=== PATIENT | female | born 1935 | race Caucasian/White ===

== ENCOUNTER 2017-06-05 14:02 | Emergency (ER) | payer MEDICARE ==
[~2017-06-05] VITALS: Ht 167.6 cm; Wt 56.7 kg
[2017-06-05 15:07] LABS: BILIRUBIN NEGATIVE (NEGATIVE); BLOOD NEGATIVE (NEGATIVE); CLARITY CLEAR (CLEAR); COLOR YELLOW (YELLOW); GLUCOSE 2+ (NEGATIVE); KETONE NEGATIVE (NEGATIVE); LEUKO ESTERASE NEGATIVE (NEGATIVE); NITRITE NEGATIVE (NEGATIVE); SPECIFIC GRAVITY <= 1.005 (1.005-1.030); UROBILINOGEN 0.2 E.U./dl (0.2-1.0)
[2017-06-05 15:17] LABS: EPITHELIAL CELLS 0-2; RBC 0-2 rbc/hpf (0-2); WBC 0-2 wbc/hpf (0-5)
== END 2017-06-05 16:31 | disposition other institution (70) ==
LOC: ED 14:02
PROVIDERS: Physician Assistant
DX: S09.90XA Unspecified injury of head, initial encounter (principal); M25.511 Pain in right shoulder; Z88.0 Allergy status to penicillin; Z88.1 Allergy status to other antibiotic agents; Z88.5 Allergy status to narcotic agent; Z91.012 Allergy to eggs; Z91.010 Allergy to peanuts; W06.XXXA Fall from bed, initial encounter; Y93.89 Activity, other specified; Y92.89 Other specified places as the place of occurrence of the external cause; Y99.9 Unspecified external cause status

== ENCOUNTER → 2017-07-10 | Outpatient (CLI) | payer MEDICARE | LOC: CT 07-03 10:00 | DX: K80.20 Calculus of gallbladder without cholecystitis without obstruction (principal); E27.49 Other adrenocortical insufficiency; N28.89 Other specified disorders of kidney and ureter; K57.30 Diverticulosis of large intestine without perforation or abscess without bleeding; I70.8 Atherosclerosis of other arteries; R31.9 Hematuria, unspecified ==

== ENCOUNTER → 2017-10-16 | Outpatient (CLI) | payer MEDICARE | END | disposition home or self-care (01) | LOC: LAB 14:05 | DX: M31.6 Other giant cell arteritis (principal); R79.82 Elevated C-reactive protein (CRP) ==

== ENCOUNTER 2018-02-20 22:38 | Inpatient (IN) | payer MEDICARE ==
[~2018-02-20] VITALS: Ht 139.7 cm; Wt 49.9 kg
--- NOTE | ~2018-02-20 | EKG ---
[place], [place] ELECTROCARDIOGRAM REPORT NAME: JACKIE OTERO UNIT #: [id number] ROOM: 409 DOCTOR: DANIELA DRAFT REPORT BIRTHDATE: [birth year] [facility] Test Date: 2018-02-20 Test Time: 22:43:12 Pat Name: JACKIE OTERO Department: Room: Gender: F Shaker Out: : 1935 Requested By: EULA SALCEDO Order Number: [id number] Reading MD: Oral Benjamin MD Measurements Intervals [place] Rate: 87 P: 48 TN: 118 QRS: -7 QRSD: 86 T: 54 QT: 354 QTc: 426 Interpretive Statements Sinus tachycardia Atrial premature complexes Borderline short TN interval RSR' in V1 or V2, right VCD Borderline ST depression, lateral leads Abnormal EKG. Electronically Signed On 02-21-2018 16:12:39 PDT by Oral Benjamin MD CM:EKGRPT:ELECTROCARDIOGRAM REPORT [id number] EULA SUAREZ DRAFT REPORT EULA SALCEDO MD
--- NOTE | ~2018-02-20 | EKG ---
[place], [place] ELECTROCARDIOGRAM REPORT NAME: JACKIE OTERO UNIT #: [id number] ROOM: 409 DOCTOR: DANIELA DRAFT REPORT BIRTHDATE: [birth year] [facility] Test Date: 2018-02-21 Test Time: 04:28:07 Pat Name: JACKIE OTERO Department: 4E Room: [facility] Gender: F Digital Sales Executive: Luis M Mejia : 1935 Requested By: EULA SALCEDO Order Number: [id number] Reading MD: Oral Benjamin MD Measurements Intervals [place] Rate: 96 P: 71 [place]: 123 QRS: 16 QRSD: 87 T: 67 QT: 351 QTc: 444 Interpretive Statements Sinus tachycardia Atrial premature complexes RSR' in V1 or V2, right VCD No significant change prior EKG Abnormal EKG. Electronically Signed On 02-21-2018 16:18:56 PDT by Oral Benjamin MD CM:EKGRPT:ELECTROCARDIOGRAM REPORT [id number] EULA SUAREZ DRAFT REPORT EULA SALCEDO MD
--- NOTE | ~2018-02-20 | EKG ---
[place], [place] ELECTROCARDIOGRAM REPORT NAME: JACKIE OTERO UNIT #: [id number] ROOM: 409 DOCTOR: EPIPHANY DRAFT REPORT BIRTHDATE: [birth year] [facility] Test Date: 2018-02-21 Test Time: 02:06:40 Pat Name: JACKIE OTERO Department: Room: Gender: F Senior Administrative Associate: [facility] : 1935 Requested By: EULA SALCEDO Order Number: [id number] Reading MD: Oral Benjamin MD Measurements Intervals [place] Rate: 83 P: 56 SC: 117 QRS: 7 QRSD: 92 T: 58 QT: 376 QTc: 442 Interpretive Statements Sinus rhythm Atrial premature complex Borderline short SC interval RSR' in V1 or V2, right VCD or RVH Borderline ST depression, lateral leads Abnormal EKG. Electronically Signed On 02-21-2018 16:14:30 PDT by Oral Benjamin MD CM:EKGRPT:ELECTROCARDIOGRAM REPORT [id number] EULA SALCEDO MD EPIPHANY DRAFT REPORT EULA SALCEDO MD
[2018-02-20 22:38] VITALS: BP 137/74
[2018-02-20 23:35] LABS: HEMATOCRIT 41.1 % (37.0-47.0); HEMOGLOBIN 13.6 g/dl (12.0-16.0); MEAN CELL VOLUME 101.2 fl (81.0-99.0); MEAN CORPUSCULAR HGB 33.5 pg (27.0-31.0); MEAN CORPUSCULAR HGB CONC 33.1 g/dl (33.0-37.0); PLATELET COUNT AUTOMATED 279 10*3/uL (130-400); RED BLOOD COUNT 4.06 10*6/uL (4.10-5.10); RED CELL DISTRI WIDTH 14.5 % (0-14.5); WHITE BLOOD COUNT 12.7 10*3/uL (4.8-10.8)
[2018-02-20 23:45] LABS: ACT PARTIAL THROMBO TIME 18.7 SECONDS (20.8-31.5); INTERNATIONAL NORM RATIO 0.9 (2.0-3.5)
[2018-02-20 23:53] LABS: ALBUMIN 2.7 gm/dl (3.1-4.5); ALKALINE PHOSPHATASE 101 U/L (45-117); BUN 27 mg/dl (7-24); CHLORIDE 104 mmol/L (98-107); CREATININE 0.65 mg/dL (0.55-1.02); POTASSIUM 3.8 mmol/L (3.5-5.1); SGOT/AST 7 IU/L (3-35); SGPT/ALT 30 U/L (12-78); SODIUM 140 mmol/L (136-145); TOTAL PROTEIN 5.3 gm/dL (6.4-8.2)
[2018-02-20 23:54] LABS: TROPONIN I 0.015 ng/ml (<0.045)
[2018-02-20 23:57] LABS: BASOPHILS 1 % (0-1); PLATELET SUFFICIENCY NORMAL (NORMAL); POLYCHROMASIA SLIGHT; TOTAL CELLS COUNTED 100 #CELLS
[2018-02-21] VITALS (7 sets, daily range): BP systolic 113–150; BP diastolic 54–86
[2018-02-21 01:05] LABS: BILIRUBIN NEGATIVE (NEGATIVE); BLOOD NEGATIVE (NEGATIVE); CLARITY CLEAR (CLEAR); COLOR YELLOW (YELLOW); GLUCOSE 2+ (NEGATIVE); KETONE NEGATIVE (NEGATIVE); LEUKO ESTERASE NEGATIVE (NEGATIVE); NITRITE NEGATIVE (NEGATIVE); PH 6.5 (5.0-9.0); SPECIFIC GRAVITY <= 1.005 (1.005-1.030); UROBILINOGEN 0.2 E.U./dl (0.2-1.0)
[2018-02-21 01:21] LABS: RBC 0-2 rbc/hpf (0-2); WBC 0-2 wbc/hpf (0-5)
[2018-02-21] MEDS ORDERED: BIOFREEZE118 ML T (02:12)
[2018-02-21] MEDS ORDERED: PREDNISONE10 M1 PO (02:14)
[2018-02-21] MEDS ORDERED: PREDNISONE5 M1 PO (02:15)
[2018-02-21] MEDS ORDERED: AQUAPHOR396 GM T (02:16)
[2018-02-21] MEDS ORDERED: COZAAR100 MG PO (02:17)
[2018-02-21] MEDS ORDERED: CONSTULOSE10 GM/151 PO (02:18)
[2018-02-21] MEDS ORDERED: LANTUS SOL100 UNIT/1 SQ (02:19)
[2018-02-21] MEDS ORDERED: ARTIFICIAL TEA1 EACH OP (02:21)
[2018-02-21] MEDS ORDERED: CLARITIN10 MG PO (02:22)
[2018-02-21] MEDS ORDERED: BENADRYL25 M2 PO (02:22)
[2018-02-21] MEDS ORDERED: CALTRATE 600 +1 EACH PO (02:23)
[2018-02-21] MEDS ORDERED: FISH OIL 1,0001 EAC4 PO (02:23)
[2018-02-21] MEDS ORDERED: LIDODERM1 EACH T (02:24)
[2018-02-21] MEDS ORDERED: PRESERVISION A1 EAC1 PO (02:25)
[2018-02-21] MEDS ORDERED: VENELEX OINTMEN60 GM T (02:27)
[2018-02-21] MEDS ORDERED: NORCO 5-325 TA1 EACH PO (02:28)
[2018-02-21] MEDS ORDERED: AYR SALINE 50 M50 ML NAS (02:28)
[2018-02-21] MEDS ORDERED: TYLENOL325 M1 PO (02:29)
[2018-02-21] MEDS ORDERED: LASIX20 MG PO (02:30)
[2018-02-21] MEDS ORDERED: AZASAN50 MG PO (02:30)
[2018-02-21] MEDS ORDERED: KLOR-CON SPRIN10 MEQ PO (02:31)
[2018-02-21] MEDS ORDERED: ASPIRIN81 M1 PO (02:32)
[2018-02-21] MEDS ORDERED: ENALAPRIL MALEA20 MG PO (02:32)
[2018-02-21] MEDS ORDERED: OMEPRAZOLE D/R20 MG PO (02:33)
[2018-02-21] MEDS ORDERED: LEVOXYL88 MCG PO (02:33)
[2018-02-21] MEDS ORDERED: DOCUSATE SODIU100 M2 PO (02:34)
[2018-02-21] MEDS ORDERED: SEROQUEL25 MG PO (02:34)
[2018-02-21] MEDS ORDERED: HUMALOG100 UNIT/2 SQ (02:35)
[2018-02-21] MEDS ORDERED: LIPITOR20 MG PO (02:35)
[2018-02-21] MEDS ORDERED: MECLIZINE HYD12.5 MG PO (02:36)
[2018-02-21 05:18] LABS: BUN 24 mg/dl (7-24); CHLORIDE 106 mmol/L (98-107); CREATININE 0.49 mg/dL (0.55-1.02); POTASSIUM 3.7 mmol/L (3.5-5.1); SODIUM 144 mmol/L (136-145)
[2018-02-21 05:22] LABS: CHOLESTEROL 117 mg/dL (<200); FREE T4 1.06 ng/dl (0.76-1.46); HDL CHOLESTEROL 48 mg/dl (40-60); LDL CHOLESTEROL 54 mg/dL (9-159); PHOSPHOROUS 3.1 mg/dL (2.5-4.9); TRIGLYCERIDES 74 mg/dl (<150); VLDL CHOLESTEROL 15 mg/dL (6-40)
[2018-02-21 05:29] LABS: THYROID STIM HORMONE (HS) 0.117 uIU/ml (0.358-4.75)
[2018-02-21 06:06] LABS: HEMATOCRIT 38.5 % (37.0-47.0); HEMOGLOBIN 12.5 g/dl (12.0-16.0); MEAN CELL VOLUME 102.9 fl (81.0-99.0); MEAN CORPUSCULAR HGB 33.4 pg (27.0-31.0); MEAN CORPUSCULAR HGB CONC 32.5 g/dl (33.0-37.0); MEAN PLATELET VOLUME 9.2 fl (9.6-12.3); PLATELET COUNT AUTOMATED 257 10*3/uL (130-400); RED BLOOD COUNT 3.74 10*6/uL (4.10-5.10); RED CELL DISTRI WIDTH 14.3 % (0-14.5); WHITE BLOOD COUNT 11.1 10*3/uL (4.8-10.8)
[2018-02-21 07:11] LABS: PLATELET SUFFICIENCY NORMAL (NORMAL); TOTAL CELLS COUNTED 100 #CELLS
[2018-02-21 08:30] LABS: VITAMIN D, 25-HYDROXY 20.2 ng/mL (30-100)
[2018-02-22] VITALS: BP 130/87
[2018-02-22 06:28] LABS: HEMATOCRIT 38.5 % (37.0-47.0); HEMOGLOBIN 12.5 g/dl (12.0-16.0); MEAN CELL VOLUME 101.9 fl (81.0-99.0); MEAN CORPUSCULAR HGB 33.1 pg (27.0-31.0); MEAN CORPUSCULAR HGB CONC 32.5 g/dl (33.0-37.0); PLATELET COUNT AUTOMATED 250 10*3/uL (130-400); RED BLOOD COUNT 3.78 10*6/uL (4.10-5.10); RED CELL DISTRI WIDTH 14.3 % (0-14.5); WHITE BLOOD COUNT 11.6 10*3/uL (4.8-10.8)
[2018-02-22 06:47] LABS: BUN 25 mg/dl (7-24); CHLORIDE 109 mmol/L (98-107); CREATININE 0.44 mg/dL (0.55-1.02); POTASSIUM 4.1 mmol/L (3.5-5.1); SODIUM 141 mmol/L (136-145)
[2018-02-22 07:12] LABS: BURR CELLS FEW; PLATELET SUFFICIENCY NORMAL (NORMAL); TOTAL CELLS COUNTED 100 #CELLS
[2018-02-22 08:00] VITALS: BP 160/70
[2018-02-22] MEDS ORDERED: PREDNISONE10 MG PO (08:02)
[2018-02-22] MEDS ORDERED: LEVAQUIN750 M1 PO (08:02)
[2018-02-22] MEDS ORDERED: LOPRESSOR25 MG PO (09:18)
[2018-04-05] MEDS ORDERED: MACROBID100 M1 PO (12:04)
[2018-04-06] MEDS ORDERED: LOPRESSOR25 MG PO (12:01)
[2018-04-06] MEDS ORDERED: SUNMARK MUCUS600 MG PO (12:03)
[2018-04-06] MEDS ORDERED: LANTUS SOL100 UNIT/1 SQ (12:27)
== END 2018-02-22 11:21 | disposition other institution (70) | DRG 871 ==
LOC: ED 22:38 → 4E 02-21 01:10 → EDHOLD 02-21 01:10 → 4E 02-21 01:23
PROVIDERS: Emergency Medicine Emergency Medical Services; Internal Medicine
PROC: 4A02XM4 Measurement of Cardiac Total Activity, External Approach (ICD-10-PCS; principal; 2018-02-21)
PROC: 3E073KZ Introduction of Other Diagnostic Substance into Coronary Artery, Percutaneous Approach (ICD-10-PCS; principal; 2018-02-21)
DX: A41.9 Sepsis, unspecified organism (principal); G93.41 Metabolic encephalopathy; E43 Unspecified severe protein-calorie malnutrition; J18.9 Pneumonia, unspecified organism; J44.0 Chronic obstructive pulmonary disease with (acute) lower respiratory infection; E11.65 Type 2 diabetes mellitus with hyperglycemia; M31.6 Other giant cell arteritis; J44.1 Chronic obstructive pulmonary disease with (acute) exacerbation; I01.1 Acute rheumatic endocarditis; I49.9 Cardiac arrhythmia, unspecified; E03.9 Hypothyroidism, unspecified; K21.9 Gastro-esophageal reflux disease without esophagitis; E78.2 Mixed hyperlipidemia; H35.30 Unspecified macular degeneration; E05.00 Thyrotoxicosis with diffuse goiter without thyrotoxic crisis or storm; H91.13 Presbycusis, bilateral; H81.03 Meniere's disease, bilateral; L57.0 Actinic keratosis; E55.9 Vitamin D deficiency, unspecified; I49.1 Atrial premature depolarization; I87.2 Venous insufficiency (chronic) (peripheral); M15.0 Primary generalized (osteo)arthritis; Z96.659 Presence of unspecified artificial knee joint; I10 Essential (primary) hypertension; Z87.81 Personal history of (healed) traumatic fracture; Z88.1 Allergy status to other antibiotic agents; Z91.012 Allergy to eggs; Z88.5 Allergy status to narcotic agent; Z91.010 Allergy to peanuts; Z88.0 Allergy status to penicillin; Z91.018 Allergy to other foods; Z91.048 Other nonmedicinal substance allergy status; Z88.8 Allergy status to other drugs, medicaments and biological substances; Z91.041 Radiographic dye allergy status; Z91.040 Latex allergy status; Z79.4 Long term (current) use of insulin; Z79.899 Other long term (current) drug therapy; Z79.82 Long term (current) use of aspirin; Z90.710 Acquired absence of both cervix and uterus; Z98.891 History of uterine scar from previous surgery; Z90.10 Acquired absence of unspecified breast and nipple; Z85.3 Personal history of malignant neoplasm of breast; Z68.25 Body mass index [BMI] 25.0-25.9, adult; R09.1 Pleurisy

== ENCOUNTER 2018-03-24 18:46 | Emergency (ER) | payer MEDICARE ==
[~2018-03-24] VITALS: Wt 49.9 kg
[~2018-03-24 18:46] MED LIST: AQUAPHOR396 GM T; ARTIFICIAL TEA1 EACH OP; ASPIRIN81 M1 PO; AYR SALINE 50 M50 ML NAS; AZASAN50 MG PO; BENADRYL25 M2 PO; BIOFREEZE118 ML T; CALTRATE 600 +1 EACH PO; CLARITIN10 MG PO; CONSTULOSE10 GM/151 PO; COZAAR100 MG PO; DOCUSATE SODIU100 M2 PO; ENALAPRIL MALEA20 MG PO; FISH OIL 1,0001 EAC4 PO; HUMALOG100 UNIT/2 SQ; KLOR-CON SPRIN10 MEQ PO; LANTUS SOL100 UNIT/1 SQ; LASIX20 MG PO; LEVAQUIN750 M1 PO; LEVOXYL88 MCG PO; LIDODERM1 EACH T; LIPITOR20 MG PO; LOPRESSOR25 MG PO; MECLIZINE HCL12.5 MG PO; NORCO 5-325 TA1 EACH PO; OMEPRAZOLE D/R20 MG PO; PREDNISONE10 M1 PO; PREDNISONE10 MG PO; PREDNISONE5 M1 PO; PRESERVISION A1 EAC1 PO; SEROQUEL25 MG PO; TYLENOL325 M1 PO; VENELEX OINTMEN60 GM T
== END 2018-03-24 20:33 | disposition home or self-care (01) ==
LOC: ED 18:46
DX: S00.90XA Unspecified superficial injury of unspecified part of head, initial encounter (principal); Z88.0 Allergy status to penicillin; Z88.1 Allergy status to other antibiotic agents; Z91.010 Allergy to peanuts; Z91.012 Allergy to eggs; Z91.018 Allergy to other foods; Z88.6 Allergy status to analgesic agent; Z91.040 Latex allergy status; Z79.899 Other long term (current) drug therapy; Z79.82 Long term (current) use of aspirin; W01.198A Fall on same level from slipping, tripping and stumbling with subsequent striking against other object, initial encounter; Y93.89 Activity, other specified; Y92.89 Other specified places as the place of occurrence of the external cause; Y99.8 Other external cause status

== ENCOUNTER 2018-04-24 16:38 | Emergency (ER) | payer MEDICARE ==
[~2018-04-24] VITALS: Ht 139.7 cm
--- NOTE | ~2018-04-24 | EKG ---
[place], [place] ELECTROCARDIOGRAM REPORT NAME: JACKIE OTERO UNIT #: [id number] ROOM: DOCTOR: EPIPHANY DRAFT REPORT BIRTHDATE: [birth year] [facility] Test Date: 2018-04-24 Test Time: 17:25:19 Pat Name: JACKIE OTERO Department: Room: Gender: F Bank Teller: EZEKIEL : 1935 Requested By: MOHAN CHUNG Order Number: [id number] Reading MD: Oral Benjamin MD Measurements Intervals [place] Rate: 80 P: 56 NE: 137 QRS: 13 QRSD: 93 T: 55 QT: 391 QTc: 451 Interpretive Statements Sinus rhythm Multiple premature complexes, vent \T\ supraven RSR' in V1 or V2, probably normal variant Compared to ECG 04/05/2018 18:13:01 RSR' in V1 or V2 now present T-wave abnormality no longer present Electronically Signed On 04-26-2018 4:19:40 PDT by Oral Benjamin MD CM:EKGRPT:ELECTROCARDIOGRAM REPORT [id number] MOHAN NOBLE DRAFT REPORT MOHAN CHUNG DO
[~2018-04-24 16:38] MED LIST changes: +MACROBID100 M1 PO; -MECLIZINE HCL12.5 MG PO; +MECLIZINE HYD12.5 MG PO; +SUNMARK MUCUS600 MG PO
[2018-04-24] MEDS ORDERED: AQUAPHOR396 GM T (17:06)
[2018-04-24] MEDS ORDERED: ARTIFICIAL TEAR15 M9 OP (17:07)
[2018-04-24] MEDS ORDERED: ASPIRIN81 M1 PO (17:07)
[2018-04-24] MEDS ORDERED: LIPITOR20 MG PO (17:08)
[2018-04-24] MEDS ORDERED: AZATHIOPRINE50 MG PO (17:09)
[2018-04-24] MEDS ORDERED: BIOFREEZE118 ML T (17:09)
[2018-04-24] MEDS ORDERED: CALTRATE 600+D1 EACH PO (17:10)
[2018-04-24] MEDS ORDERED: CLARITIN10 MG PO (17:10)
[2018-04-24] MEDS ORDERED: ENALAPRIL MALEA20 MG PO (17:11)
[2018-04-24] MEDS ORDERED: FISH OIL 1,0001 EAC3 PO (17:11)
[2018-04-24] MEDS ORDERED: DOCUSATE SOD100 MG PO (17:11)
[2018-04-24] MEDS ORDERED: MUCINEX ER600 MG PO (17:12)
[2018-04-24] MEDS ORDERED: LASIX20 MG PO (17:12)
[2018-04-24] MEDS ORDERED: HUMALOG100 UNIT/1 SQ (17:13)
[2018-04-24] MEDS ORDERED: LANTUS SOL100 UNIT/1 SQ (17:13)
[2018-04-24] MEDS ORDERED: GENERLAC10 GM/15 M PO (17:13)
[2018-04-24] MEDS ORDERED: LEVOXYL88 MCG PO (17:14)
[2018-04-24] MEDS ORDERED: LOPRESSOR25 MG PO (17:15)
[2018-04-24] MEDS ORDERED: MECLIZINE HYD12.5 MG PO (17:15)
[2018-04-24] MEDS ORDERED: LIDOCAINE PAIN1 EACH T (17:15)
[2018-04-24] MEDS ORDERED: KLOR-CON SPRIN10 MEQ PO (17:16)
[2018-04-24] MEDS ORDERED: OMEPRAZOLE20 M3 PO (17:16)
[2018-04-24] MEDS ORDERED: NORCO 5-325 TA1 EACH PO (17:16)
[2018-04-24] MEDS ORDERED: SEROQUEL25 MG PO (17:17)
[2018-04-24] MEDS ORDERED: PRESERVISION A1 EAC1 PO (17:17)
[2018-04-24] MEDS ORDERED: TYLENOL325 M3 PO (17:18)
[2018-04-24] MEDS ORDERED: SALINE MIST 4545 ML NAS (17:18)
[2018-04-24] MEDS ORDERED: XOPENEX0.31 MG/3 NEB ×2 (17:19→17:20)
[2018-04-24] MEDS ORDERED: VENELEX OINTMEN60 GM T (17:19)
[2018-04-24 18:30] LABS: BASO # 0.1 10*3/uL (0.0-0.1); BASO % 0.7 % (0.0-1.0); EOS # 0.3 10*3/uL (0.0-0.4); EOS % 2.1 % (1.0-4.0); HEMATOCRIT 39.4 % (37.0-47.0); HEMOGLOBIN 12.6 g/dl (12.0-16.0); LYMPH % 16.6 % (27.0-41.0); MEAN CELL VOLUME 103.1 fl (81.0-99.0); MONO # 1.1 10*3/uL (0.1-1.0); NEUT # 8.7 10*3/uL (2.3-7.9); NEUT % 70.7 % (47.0-73.0); PLATELET COUNT AUTOMATED 513 10*3/uL (130-400); RED BLOOD COUNT 3.82 10*6/uL (4.10-5.10); RED CELL DISTRI WIDTH 14.6 % (0-14.5); WHITE BLOOD COUNT 12.3 10*3/uL (4.8-10.8)
[2018-04-24 18:38] LABS: ACT PARTIAL THROMBO TIME 23.6 SECONDS (20.8-31.5); INTERNATIONAL NORM RATIO 0.9 (2.0-3.5)
[2018-04-24 18:52] LABS: ALKALINE PHOSPHATASE 126 U/L (45-117); BUN 15 mg/dl (7-24); CHLORIDE 106 mmol/L (98-107); CREATININE 0.43 mg/dL (0.55-1.02); LIPASE 209 U/L (73-393); SGOT/AST 19 IU/L (3-35); SGPT/ALT 20 U/L (12-78); SODIUM 139 mmol/L (136-145); TOTAL PROTEIN 6.4 gm/dL (6.4-8.2)
[2018-04-24 18:53] LABS: TROPONIN I < 0.015 ng/ml (<0.045)
[2018-04-24 19:43] LABS: BILIRUBIN NEGATIVE (NEGATIVE); BLOOD NEGATIVE (NEGATIVE); CLARITY SL CLOUDY (CLEAR); COLOR YELLOW (YELLOW); GLUCOSE NEGATIVE (NEGATIVE); KETONE 1+ (NEGATIVE); LEUKO ESTERASE 1+ (NEGATIVE); NITRITE POSITIVE (NEGATIVE); PH 6.5 (5.0-9.0); UROBILINOGEN 0.2 E.U./dl (0.2-1.0)
[2018-04-24 19:53] LABS: EPITHELIAL CELLS TNTC; WBC TNTC wbc/hpf (0-5)
[2018-04-24 19:54] LABS: BACTERIA 3+
== END 2018-04-25 10:31 | disposition short-term general hospital (02) ==
LOC: ED 16:38
PROVIDERS: Emergency Medicine
DX: S42.212A Unspecified displaced fracture of surgical neck of left humerus, initial encounter for closed fracture (principal); S43.015A Anterior dislocation of left humerus, initial encounter; N39.0 Urinary tract infection, site not specified; R07.81 Pleurodynia; M25.562 Pain in left knee; J44.9 Chronic obstructive pulmonary disease, unspecified; M19.90 Unspecified osteoarthritis, unspecified site; E03.9 Hypothyroidism, unspecified; I10 Essential (primary) hypertension; E11.9 Type 2 diabetes mellitus without complications; E78.2 Mixed hyperlipidemia; Z79.4 Long term (current) use of insulin; Z90.710 Acquired absence of both cervix and uterus; Z88.0 Allergy status to penicillin; Z88.1 Allergy status to other antibiotic agents; Z88.6 Allergy status to analgesic agent; Z91.012 Allergy to eggs; Z91.018 Allergy to other foods; Z79.82 Long term (current) use of aspirin; Z79.899 Other long term (current) drug therapy; Z96.659 Presence of unspecified artificial knee joint; Z98.890 Other specified postprocedural states; Z90.12 Acquired absence of left breast and nipple; W18.09XA Striking against other object with subsequent fall, initial encounter; Y93.89 Activity, other specified; Y92.098 Other place in other non-institutional residence as the place of occurrence of the external cause; Y99.8 Other external cause status

== ENCOUNTER 2019-02-19 00:25 | Emergency (ER) | payer MEDICARE ==
[~2019-02-19] VITALS: Ht 144.7 cm; Wt 54.4 kg
--- NOTE | ~2019-02-19 | EKG ---
[place], [place] ELECTROCARDIOGRAM REPORT NAME: JACKIE OTERO UNIT #: [id number] ROOM: DOCTOR: EPIPHANY DRAFT REPORT BIRTHDATE: [birth year] [facility] Test Date: 2019-02-19 Test Time: 01:10:31 Pat Name: JACKIE OTERO Department: er Room: Gender: F Respiratory Therapy Assistant: Tammie Albarran : 1935 Requested By: EULA SALCEDO Order Number: [id number] Reading MD: Filipe Melgar MD Measurements Intervals [place] Rate: 77 P: 51 [place]: 143 QRS: -3 QRSD: 96 T: 70 QT: 392 QTc: 444 Interpretive Statements Sinus rhythm Atrial premature complexes Compared to ECG 04/24/2018 17:25:19 Atrial premature complex(es) now present Electronically Signed On 02-25-2019 4:02:48 PDT by Filipe Melgar MD CM:EKGRPT:ELECTROCARDIOGRAM REPORT [id number] EULA SALCEDO MD EPIPHANY DRAFT REPORT EULA SALCEDO MD
[~2019-02-19 00:25] MED LIST changes: +ARTIFICIAL TEAR15 M9 OP; +AZATHIOPRINE50 MG PO; +CALTRATE 600+D1 EACH PO; +DOCUSATE SOD100 MG PO; +FISH OIL 1,0001 EAC3 PO; +GENERLAC10 GM/15 M PO; +HUMALOG100 UNIT/1 SQ; +LIDOCAINE PAIN1 EACH T; +MUCINEX ER600 MG PO; +OMEPRAZOLE20 M3 PO; +SALINE MIST 4545 ML NAS; +TYLENOL325 M3 PO; +XOPENEX0.31 MG/3 NEB
[2019-02-19 01:21] LABS: BILIRUBIN NEGATIVE (NEGATIVE); BLOOD NEGATIVE (NEGATIVE); CLARITY CLEAR (CLEAR); COLOR YELLOW (YELLOW); GLUCOSE NEGATIVE (NEGATIVE); KETONE NEGATIVE (NEGATIVE); LEUKO ESTERASE NEGATIVE (NEGATIVE); NITRITE NEGATIVE (NEGATIVE); PH 7.5 (5.0-9.0); SPECIFIC GRAVITY <= 1.005 (1.005-1.030); UROBILINOGEN 0.2 E.U./dl (0.2-1.0)
[2019-02-19 01:30] LABS: BACTERIA TRACE; EPITHELIAL CELLS 20-25; RBC 0-2 rbc/hpf (0-2); WBC 0-2 wbc/hpf (0-5)
[2019-02-19 01:33] LABS: ACT PARTIAL THROMBO TIME 22.4 SECONDS (20.0-32.1); HEMATOCRIT 38.5 % (37.0-47.0); HEMOGLOBIN 12.5 g/dl (12.0-16.0); INTERNATIONAL NORM RATIO 0.9 (2.0-3.5); MEAN CELL VOLUME 109.1 fl (81.0-99.0); MEAN CORPUSCULAR HGB 35.4 pg (27.0-31.0); MEAN CORPUSCULAR HGB CONC 32.5 g/dl (33.0-37.0); MEAN PLATELET VOLUME 8.8 fl (9.6-12.3); PLATELET COUNT AUTOMATED 479 10*3/uL (130-400); RED BLOOD COUNT 3.53 10*6/uL (4.10-5.10); RED CELL DISTRI WIDTH 12.9 % (0-14.5)
[2019-02-19 01:38] LABS: ALKALINE PHOSPHATASE 125 U/L (45-117); BUN 15 mg/dl (7-24); CHLORIDE 106 mmol/L (98-107); CREATININE 0.55 mg/dL (0.55-1.02); POTASSIUM 3.7 mmol/L (3.5-5.1); SGOT/AST 15 IU/L (3-35); SGPT/ALT 26 U/L (12-78); SODIUM 143 mmol/L (136-145); TOTAL PROTEIN 6.4 gm/dL (6.4-8.2)
[2019-02-19 01:43] LABS: TROPONIN I < 0.015 ng/ml (<0.045)
[2019-02-19 01:54] LABS: TOTAL CELLS COUNTED 100 #CELLS
[2019-02-19 01:55] LABS: PLATELET SUFFICIENCY NORMAL (NORMAL)
== END 2019-02-19 04:20 | disposition short-term general hospital (02) ==
LOC: ED 00:25
PROVIDERS: Emergency Medicine Emergency Medical Services
DX: S51.012A Laceration without foreign body of left elbow, initial encounter (principal); S00.83XA Contusion of other part of head, initial encounter; D72.829 Elevated white blood cell count, unspecified; M25.511 Pain in right shoulder; J44.9 Chronic obstructive pulmonary disease, unspecified; E11.9 Type 2 diabetes mellitus without complications; I10 Essential (primary) hypertension; K21.9 Gastro-esophageal reflux disease without esophagitis; E03.9 Hypothyroidism, unspecified; E78.2 Mixed hyperlipidemia; Z88.0 Allergy status to penicillin; Z91.048 Other nonmedicinal substance allergy status; Z88.1 Allergy status to other antibiotic agents; Z88.5 Allergy status to narcotic agent; Z91.041 Radiographic dye allergy status; Z91.010 Allergy to peanuts; Z91.018 Allergy to other foods; Z90.710 Acquired absence of both cervix and uterus; Z79.4 Long term (current) use of insulin; Z79.899 Other long term (current) drug therapy; Z79.82 Long term (current) use of aspirin; W18.39XA Other fall on same level, initial encounter; Y93.89 Activity, other specified; Y92.121 Bathroom in nursing home as the place of occurrence of the external cause; Y99.8 Other external cause status

== ENCOUNTER 2020-05-09 09:07 | Emergency (ER) | payer MEDICARE ==
[~2020-05-09] VITALS: Wt 49.9 kg
[2020-05-09 09:34] LABS: BASO # 0.1 10*3/uL (0.0-0.1); BASO % 0.4 % (0.0-1.0); EOS # 0.1 10*3/uL (0.0-0.4); EOS % 0.9 % (1.0-4.0); HEMATOCRIT 39.9 % (37.0-47.0); LYMPH # 2.1 10*3/uL (1.3-4.4); LYMPH % 14.8 % (27.0-41.0); MEAN CELL VOLUME 104.2 fl (81.0-99.0); MEAN CORPUSCULAR HGB 34.5 pg (27.0-31.0); MEAN CORPUSCULAR HGB CONC 33.1 g/dl (33.0-37.0); MEAN PLATELET VOLUME 8.6 fl (9.6-12.3); MONO # 0.9 10*3/uL (0.1-1.0); MONO % 6.6 % (3.0-9.0); NEUT # 10.6 10*3/uL (2.3-7.9); NEUT % 76.4 % (47.0-73.0); PLATELET COUNT AUTOMATED 377 10*3/uL (130-400); RED BLOOD COUNT 3.83 10*6/uL (4.10-5.10); RED CELL DISTRI WIDTH 13.1 % (0-14.5); WHITE BLOOD COUNT 13.9 10*3/uL (4.8-10.8)
[2020-05-09 09:50] LABS: ALBUMIN 2.8 gm/dl (3.1-4.5); ALKALINE PHOSPHATASE 105 U/L (45-117); BUN 20 mg/dl (7-24); CHLORIDE 107 mmol/L (98-107); CREATININE 0.48 mg/dL (0.55-1.02); LIPASE 114 U/L (73-393); POTASSIUM 3.2 mmol/L (3.5-5.1); SGOT/AST 17 IU/L (3-35); SGPT/ALT 21 U/L (12-78); SODIUM 139 mmol/L (136-145); TOTAL PROTEIN 5.7 gm/dL (6.4-8.2)
[2020-05-09 09:54] LABS: TROPONIN I < 0.015 ng/ml (<0.045)
[2020-05-09] MEDS ORDERED: MEDROL DOSEPAK4 MG PO (10:32)
== END 2020-05-09 10:38 | disposition other institution (70) ==
LOC: ED 09:07
PROVIDERS: Physician Assistant
DX: T78.40XA Allergy, unspecified, initial encounter (principal); M19.90 Unspecified osteoarthritis, unspecified site; Z88.0 Allergy status to penicillin; Z88.8 Allergy status to other drugs, medicaments and biological substances; Z91.012 Allergy to eggs; Z91.010 Allergy to peanuts; Z79.899 Other long term (current) drug therapy; Z79.82 Long term (current) use of aspirin; Z79.4 Long term (current) use of insulin; X58.XXXA Exposure to other specified factors, initial encounter

== ENCOUNTER 2020-05-26 11:32 | Observation (INO) | payer MEDICARE ==
[2020-05-26] VITALS (10 sets, daily range): BP systolic 121–216; BP diastolic 76–109
[~2020-05-26] VITALS: Ht 137.1 cm; Wt 47.0 kg
[~2020-05-26 11:32] MED LIST changes: +MEDROL DOSEPAK4 MG PO
[2020-05-26 11:48] LABS: BASO % 0.4 % (0.0-1.0); EOS # 0.1 10*3/uL (0.0-0.4); EOS % 0.6 % (1.0-4.0); HEMATOCRIT 41.7 % (37.0-47.0); LYMPH # 1.4 10*3/uL (1.3-4.4); LYMPH % 12.5 % (27.0-41.0); MEAN CELL VOLUME 101.5 fl (81.0-99.0); MEAN CORPUSCULAR HGB 33.8 pg (27.0-31.0); MEAN CORPUSCULAR HGB CONC 33.3 g/dl (33.0-37.0); MEAN PLATELET VOLUME 8.6 fl (9.6-12.3); MONO # 0.8 10*3/uL (0.1-1.0); MONO % 7.2 % (3.0-9.0); NEUT # 8.7 10*3/uL (2.3-7.9); NEUT % 78.7 % (47.0-73.0); PLATELET COUNT AUTOMATED 333 10*3/uL (130-400); RED BLOOD COUNT 4.11 10*6/uL (4.10-5.10); RED CELL DISTRI WIDTH 12.7 % (0-14.5)
[2020-05-26 11:58] LABS: ACT PARTIAL THROMBO TIME 23.6 SECONDS (20.0-32.1); INTERNATIONAL NORM RATIO 0.9 (2.0-3.5)
[2020-05-26 12:05] LABS: ALBUMIN 3.1 gm/dl (3.1-4.5); ALKALINE PHOSPHATASE 116 U/L (45-117); BUN 22 mg/dl (7-24); CHLORIDE 105 mmol/L (98-107); POTASSIUM 3.3 mmol/L (3.5-5.1); SGOT/AST 22 IU/L (3-35); SGPT/ALT 38 U/L (12-78); SODIUM 141 mmol/L (136-145); TOTAL PROTEIN 6.4 gm/dL (6.4-8.2)
[2020-05-26 12:06] LABS: TROPONIN I 0.016 ng/ml (<0.045)
--- NOTE | 2020-05-26 12:25 | NUR ---
PT INCONTINENT OF URINE. BED CHANGED AND NEW DEPENDS APPLIED. ADEQUATE BED MOBILITY. NO COMPLAINTS OF PAIN AT THIS TIME. TOLERATED BED CHANGE WITHOUT DIIFICULTY.
--- NOTE | 2020-05-26 12:48 | NUR ---
PT HAS A SCAB/SCAR TO L LATERAL LOWER LEG. SKIN INTACT. REDNESS TO BUTTOCKS, BLANCHABLE. ARRIVED TO ED WITH A LIDOCAINE PATCH APPLIED TO EACH SCAPULA. NITROBID INTACT TO L UPPER ARM.
--- NOTE | 2020-05-26 13:05 | NUR ---
[facility] 85, admitted to 5E, under the services of ANGELIQUE Skaggs DO with a diagnosis of CHEST PAIN, HTN. Chief complaint is LEFT SIDED CHEST PAIN. Patient arrived via ambulance from ER. Monitor applied. Initial assessment completed. Vital signs taken and recorded. ANGELIQUE SKAGGS DO notified of admission to the unit. Orders received. See assessment for past medical history, medications and allergies. Patient and/or family oriented to unit. [address] visitation policy reviewed. Clothing/patient valuable form completed. MAXIMO CHUNG.
--- NOTE | 2020-05-26 13:35 | NUR ---
AWARE OF ELEVATED BP. NO NEW ORDERS AT THIS TIME.
[2020-05-26] MEDS ORDERED: VENTOLIN 02.5 MG/3 M INH (13:37)
[2020-05-26] MEDS ORDERED: NORVASC5 MG PO (13:38)
[2020-05-26] MEDS ORDERED: CALTRATE 600 P1 EACH PO (13:39)
[2020-05-26] MEDS ORDERED: VITAMIN A T (13:41)
[2020-05-26] MEDS ORDERED: [UNRECOGNIZED DRUG - OTHER] T (13:41)
[2020-05-26] MEDS ORDERED: PROBIOTIC250 MG PO (13:44)
[2020-05-26] MEDS ORDERED: 24 HOUR ALLERG9.9 ML INH (13:46)
[2020-05-26] MEDS ORDERED: HUMALOG100 UNIT/2 SC (13:48)
[2020-05-26] MEDS ORDERED: IMURAN50 MG PO (13:49)
[2020-05-26] MEDS ORDERED: LIDODERM1 EACH T ×2 (13:52→13:53)
[2020-05-26] MEDS ORDERED: LOPRESSOR25 MG PO (13:56)
[2020-05-26] MEDS ORDERED: ONDANSETRON4 MG SL (13:58)
[2020-05-26] MEDS ORDERED: POTASSIUM CHLO10 ME5 PO (13:59)
[2020-05-26] MEDS ORDERED: PREDNISONE5 MG PO (14:00)
[2020-05-26] MEDS ORDERED: PRESERVISION A1 EAC1 PO (14:02)
[2020-05-26] MEDS ORDERED: ZOCOR40 MG PO (14:08)
[2020-05-26] MEDS ORDERED: DIPHENHYDRAMINE25 M2 PO (14:12)
--- NOTE | 2020-05-26 14:15 | NUR ---
MED REC UPDATED PER POLICY.
--- NOTE | 2020-05-26 20:00 | NUR ---
Patient lying in bed, has no complaints at this time. Patient has periods of confusion. Updated patient on plan of care and for stress test. Patient left with call light in reach.
--- NOTE | 2020-05-26 23:00 | NUR ---
ASSUMED CARE FOR THIS PT AT THIS TIME. PT RESTING QUIETLY IN BED. AWOKEN EASILY. PT DENIES CP. CALL LIGHT IN REACH.
[2020-05-27] VITALS: BP 158/83
--- NOTE | 2020-05-27 04:00 | NUR ---
PT RESTING QUIETLY IN BED W/EYES CLOSED. NO S/S OF DISTRESS NOTED. BED IN LOW POSITION W/BED ALARM ON AND CALL LIGHT IN REACH.
[2020-05-27 06:28] LABS: BASO % 0.3 % (0.0-1.0); EOS # 0.1 10*3/uL (0.0-0.4); EOS % 1.3 % (1.0-4.0); HEMATOCRIT 39.1 % (37.0-47.0); LYMPH # 2.6 10*3/uL (1.3-4.4); LYMPH % 26.8 % (27.0-41.0); MEAN CELL VOLUME 103.2 fl (81.0-99.0); MEAN CORPUSCULAR HGB 33.2 pg (27.0-31.0); MEAN CORPUSCULAR HGB CONC 32.2 g/dl (33.0-37.0); MEAN PLATELET VOLUME 8.8 fl (9.6-12.3); MONO # 0.8 10*3/uL (0.1-1.0); MONO % 8.6 % (3.0-9.0); NEUT # 5.9 10*3/uL (2.3-7.9); NEUT % 62.4 % (47.0-73.0); PLATELET COUNT AUTOMATED 323 10*3/uL (130-400); RED BLOOD COUNT 3.79 10*6/uL (4.10-5.10); RED CELL DISTRI WIDTH 12.6 % (0-14.5); WHITE BLOOD COUNT 9.5 10*3/uL (4.8-10.8)
--- NOTE | 2020-05-27 06:37 | NUR ---
ENTERED PT'S ROOM TO CHECK BGM. PT STATES SHE DOESN'T FEEL WELL. PT UNABLE TO SPECIFY. BS 56. PT DRANK 120CC OJ AND 50ML OF IVP DEXTROSE GIVEN D/T PT'S NPO STATUS FOR STRESS TEST TODAY. WILL MONITOR.
[2020-05-27 06:46] LABS: CHLORIDE 107 mmol/L (98-107); POTASSIUM 2.8 mmol/L (3.5-5.1); SODIUM 142 mmol/L (136-145)
[2020-05-27 06:56] LABS: ALBUMIN 2.8 gm/dl (3.1-4.5); ALKALINE PHOSPHATASE 87 U/L (45-117); BUN 24 mg/dl (7-24); SGOT/AST 21 IU/L (3-35); SGPT/ALT 28 U/L (12-78); TOTAL PROTEIN 5.3 gm/dL (6.4-8.2)
[2020-05-27 08:00] VITALS: BP 164/82
--- NOTE | 2020-05-27 08:15 | NUR ---
NOTIFIED REGARDING K OF 2.8. NEW ORDERS TO BE ENTERED PER PHYSICIAN.
--- NOTE | 2020-05-27 09:00 | NUR ---
case management visits with patient. she is skilled at [facility] and will return when discharged, Covid testing is pending., case management will follow
--- NOTE | 2020-05-27 09:19 | NUR ---
NOTIFIED REGARDING PATIENT UNABLE TO TOLERATE IV K-RUN. PATIENT TAKEN DOWN FOR STRESS TEST AT THIS TIME. AWAITING RESULTS.
--- NOTE | 2020-05-27 09:39 | NUR ---
PATIENT IS FROM [facility]. PATIENT CAN RETURN WHEN MEDICALLY STABLE.
--- NOTE | 2020-05-27 10:05 | NUR ---
INFORMED CONSENT OBTAINED FROM SON VIA PHONE FOR LEXISCAN STRESS TEST WITH DR. DAVILA. PT WAS ORIENTED X1 TO PERSON. COMPLETED ONE MINUTE OF LEXISCAN PROTOCOL RECEIVNG LEXISCAN 0.4MG OVER 10 SECONDS. PAC'S PRESENT WITH NO ST CHANGES. PTC/O NAUSEA AND SOB. LAST RECOVERY HR 90, BP 164/80. WAITING NUCLEAR SCANNING IN STABLE CONDITION.
[2020-05-27 12:00] VITALS: BP 184/80
[2020-05-27 14:07] VITALS: BP 180/80
[2020-05-27 16:00] VITALS: BP 164/70
--- NOTE | 2020-05-27 16:30 | NUR ---
BSG 178. 2 UNITS OF INSULIN GIVEN PER S/S. NO VOICED COMPLAINTS PER PT. WILL CONTINUE TO MONITOR. CALL LIGHT WITHIN REACH.
--- NOTE | 2020-05-27 19:30 | NUR ---
SPOKE WITH DR. COOMBS AT THIS TIME PERTAINING TO PATIENT HAVING A DISCHARGE ORDER IN. NOTIFIED HIM THAT PATIENT HAS A COVID SWAB PENDING AND THAT HER POTASSIUM WAS ONLY 2.8 THIS MORNING AND WAS NOT ABLE TO GET K RUNS AND COULD ONLY GET PO POTASSIUM. HE STATED HE WOULD LOOK INTO IT AND FIND OUT
[2020-05-27 20:00] VITALS: BP 160/86; BP 171/85
--- NOTE | 2020-05-27 20:04 | NUR ---
SPOKE WITH DR. COOMBS, DR. COOMBS STATED THAT DR. TAVERA WAS AWARE OF THE POTASSIUM LEVEL AND IS OK WITH IT AND THE SUPPLEMENTATION AND TO GET A HOLD OF [facility] AND SEE IF IT IS OK FOR HER TO GO BACK TONIGHT.
--- NOTE | 2020-05-27 20:07 | NUR ---
SPOKE WITH THE NURSE AT [facility] ABOUT PATIENT RETURNING TONIGHT. SHE STATED SHE USUALLY DOESN'T GET ADMISSIONS THIS LATE AT NIGHT AND IS UNSURE IF THEY CAN TAKE THE PATIENT TONIGHT. NOTIFIED HER THAT A COVID IS PENDING AND WAS DONE TODAY. SHE STATED THAT SHE WOULD HAVE TO GET A HOLD OF HER STATION OPERATOR AND SEE IF IT IS OK FOR THE PATIENT TO RETURN TONIGHT
--- NOTE | 2020-05-27 20:30 | NUR ---
SPOKE WITH LATOSHA AT [facility] AND THEY STATED THAT IT WAS OK FOR PATIENT TO BE DISCHARGED BACK TO FACILITY.
--- NOTE | 2020-05-27 20:45 | NUR ---
PATIENTS VANESSA SINCLAIR MADE AWARE OF PATIENT BEING DISCHARGED FROM OUR FACILITY BACK TO [facility]. PHONE CONSENT OBTAINED FOR PATIENT TO BE TRANSPORTED BACK TO FACILITY. NOTIFIED HIM OF NEGATIVE STRESS TEST.
--- NOTE | 2020-05-27 22:35 | NUR ---
REPORT CALLED TO LATOSHA AT [facility].
--- NOTE | 2020-05-27 22:45 | NUR ---
PATIENT DISCHARGED VIA [place] TO [facility] AT THIS TIME. BELONGINGS WITH PATIENT.
[2020-06-01] MEDS ORDERED: LISINOPRIL20 MG PO (14:17)
[2020-06-01] MEDS ORDERED: METOPROLOL TART50 M1 PO (14:17)
== END 2020-05-28 01:38 | disposition other institution (70) ==
LOC: ED 11:32 → 5E 12:31 → EDHOLD 12:31 → 5E 12:46
PROVIDERS: Emergency Medicine; Student in an Organized Health Care Education/Training Program; ADMIT Internal Medicine; ATTEND Internal Medicine
DX: N17.0 Acute kidney failure with tubular necrosis (principal); E86.0 Dehydration; G20 Parkinson's disease; E44.1 Mild protein-calorie malnutrition; E87.8 Other disorders of electrolyte and fluid balance, not elsewhere classified; F32.9 Major depressive disorder, single episode, unspecified; K21.9 Gastro-esophageal reflux disease without esophagitis; M19.90 Unspecified osteoarthritis, unspecified site; G47.30 Sleep apnea, unspecified; D53.9 Nutritional anemia, unspecified

== ENCOUNTER 2020-05-29 09:31 | Observation (INO) | payer MEDICARE ==
[~2020-05-29] VITALS: Ht 144.7 cm; Wt 41.3 kg
--- NOTE | 2020-05-29 11:45 | NUR ---
STRAIGHT CATHED PATIENT FOR URINE SPECIMEN, TOLERATED WELL, PT SOILED BRIEF CHANGED, PT CLEANED AND APPLIED NEW BRIEF WITHOUT DIFFICULTY, NO S/S OF DISTRESS NOTED. CALL LIGHT WITHIN REACH
--- NOTE | 2020-05-29 14:02 | NUR ---
PATIENT HAS DRY SKIN TO BILATERAL LOWER EXTREMITIES, MULTIPLE SCABS LOCATED TO LOWER EXTREMITIES, SKIN INTACT. PATIENT REFUSING TO HAVE PHOTGRAPHS OF SCABBED AREAS.
--- NOTE | 2020-05-29 14:15 | NUR ---
A 85, admitted to 5E, under the services of DANISH Milton DO with a diagnosis of HYPERTENSIVE URGENCY,HYPOKALEMIA Chief complaint is HYPERTENSIVE URGENCY. Patient arrived via ambulance from ER. Monitor applied. Initial assessment completed. Vital signs taken and recorded. DANISH MILTON DO notified of admission to the unit. Orders received. See assessment for past medical history, medications and allergies. Patient and/or family oriented to unit. visitation policy reviewed. Clothing/patient valuable form completed. SHELL TONG
--- NOTE | 2020-05-29 14:15 | NUR ---
PATIENT TRANSPORTED TO THE FLOOR AND REPORT GIVEN TO SHELL CARO. PATIENT VSS AT THIS TIME. NO VOICED COMPLAINTS
--- NOTE | 2020-05-29 15:15 | NUR ---
REPORTED HIGH BP TO DR. Ulises HEARD. SEE FLOWSHEET. RECEIVED NEW ORDER FOR ONE TIME DOSE OF NORVASC, LOPRESSOR AND K+ NOW. ADMINISTERED.
--- NOTE | 2020-05-29 16:45 | NUR ---
NOTIFIED MD OF BP STILL BEING ELEVATED. RETAKE IN ONE HR.
--- NOTE | 2020-05-29 18:00 | NUR ---
RETOOK BP SEE FLOWSHEET. IS DECREASING. NOTIFIED MD AND HE STATED CONTINUE TO MONITOR.
--- NOTE | 2020-05-29 20:05 | NUR ---
DR WHITNEY NOTIFIED OF BLOOD PRESSURE OF 184/92. NEW ORDERS RECEIVED.
--- NOTE | 2020-05-29 23:48 | NUR ---
PT RESTING IN BED. RESPIRATIONS EASY AND UNLABORED. NO S/S OF DISTRESS NOTED. SAFETY MEASURES IN PLACE. CALL LIGHT IN REACH.
--- NOTE | 2020-05-30 03:04 | NUR ---
PT SLEEPING. RESPIRATIONS UNLABORED. CALL LIGHT IN REACH, BED ALARM ON.
--- NOTE | 2020-05-30 03:04 | NUR ---
Shift chart check completed.
--- NOTE | 2020-05-30 04:13 | NUR ---
PT SLEEPING. RESPS 12. NO S/S OF DISTRESS. BED ALARM IN TACT, CALL LIGHT IN REACH.
--- NOTE | 2020-05-30 08:35 | NUR ---
NOTIFIED DR HEARD OF .
--- NOTE | 2020-05-30 10:30 | NUR ---
NOTIFIED DR HEARD OF .
--- NOTE | 2020-05-30 17:23 | NUR ---
PATIENT C/O OF LEFT SHOULDER PAIN 6/10 SHARP MEDICATED WITH TYLENOL ORDERED PRN.
--- NOTE | 2020-05-30 18:23 | NUR ---
PATIENT RESTING QUIETLY WITH EYES CLOSED RESPIRATIONS, EASY AND NON-LABORED. TYLENOL EFFECTIVE.
--- NOTE | 2020-05-30 20:00 | NUR ---
Neurological: awake, alert Respiratory: diminished bilaterally Breath sounds: clear Cough: none Cardiovascular: hypertensive Gastrointestinal: no problem Genito/Urinary: incontinent Musculoskeketal: weakness SHELL TONG
--- NOTE | 2020-05-31 07:00 | NUR ---
ARRIVED ON SHIFT, REPORT RECEIVED FROM OFFGOING NURSE,ASSUMED CARE OF PATIENT.
--- NOTE | 2020-05-31 07:20 | NUR ---
INTRODUCED SELF TO PATIENT, BED IN LOW POSITION, WHEEL LOCKS ENGAGED, BED ALARM ON, CALL LIGHT WITHIN REACH, SIDE RAILS UP X 2 FOR TURNING AND REPOSITIONING, NO NEEDS VOICED AT THIS TIME, WHITE BOARD UPDATED.
--- NOTE | 2020-05-31 09:06 | NUR ---
PATIENT C/O OF SHOULDER AND BILATERAL ARM PAIN RATES 5/10 MEDICATED WITH TYLENOL ORDERED PRN. WHITE BOARD UPDATED.
--- NOTE | 2020-05-31 09:18 | NUR ---
CALL PLACED TO DR. PATTERSON, ADVISED OF PATIENTS BP OF 190/82, I ALSO TOLD HIM I HAD JUST NOW GIVEN HER BP MEDS, HE REQUESTED I RECHECK BP IN 1 HOUR.
--- NOTE | 2020-05-31 10:00 | NUR ---
TYLENOL EFFECTIVE, EVIDENCED BY PATIENT RESTING QUIETLY WITH EYES CLOSED, NO S/S OF DISTRESS NOTED.
--- NOTE | 2020-05-31 10:18 | NUR ---
CALL,PLACED TO DR. PATTERSON TO ADVISE PTS BP REMAINS ELEVATED @ 188/78, NO ANSWER LEFT VM.
--- NOTE | 2020-05-31 13:05 | NUR ---
PT IS CURRENTLY SHORT TERM CARE AT [facility]. WILL RETURN WHEM MEDICALLY STABLE. WILL REQUIRES A COVID TEST.
--- NOTE | 2020-05-31 13:15 | NUR ---
Patient is short term care at the [facility]. Updated clinicals faxed, covid is pending. Patient is ok to return when medically stable for discharge.
--- NOTE | 2020-05-31 16:50 | NUR ---
CALL PLACED TO DR. ARNOLD OFFICE SPOKE WITH DENA ADVISED OF CONSULT.
--- NOTE | 2020-05-31 17:00 | NUR ---
RECEIVED CALL BACK FROM DR. YARBROUGH, REVIEWED PATIENTS MEDICATION WELL VS SINCE ADMISSION, HE VERSED HE WILL SEE TOMORROW.
--- NOTE | 2020-05-31 20:25 | NUR ---
PO TYLENOL GIVEN FOR C/O BL SHOULDER PAIN RATED 5/10. WILL MONITOR EFFECTIVENESS. CALL LIGHT IN REACH.
--- NOTE | 2020-05-31 21:15 | NUR ---
EARLIER TYLENOL EFFECTIVE PER PT. NEW IV SITE INITIATED IN L WRIST PT PULLED OUT OLD IV SITE. PT TOLERATED WELL. SITE WRAPPED WITH KERLIX TO PREVENT BEING PULLED OUT AGAIN. WILL MONITOR. CALL LIGHT IN REACH.
--- NOTE | 2020-06-01 02:15 | NUR ---
PT ASLEEP IN BED. NO S/S OF DISTRESS NOTED. WILL MONITOR. CALL LIGHT IN REACH.
--- NOTE | 2020-06-01 04:03 | NUR ---
PT ASLEEP IN BED. NO S/S OF DISTRESS NOTED. WILL MONITOR. CALL LIGHT IN REACH.
--- NOTE | 2020-06-01 05:42 | NUR ---
PO TYLENOL ADMINISTERED FOR C/O PAIN IN BL SHOULDERS RATED 6/10. WILL MONITOR EFFECTIVENESS. CALL LIGHT LEFT IN REACH. BED ALARM INTACT.
--- NOTE | 2020-06-01 06:40 | NUR ---
EARLIER MEDS EFFECTIVE PER PT. WILL MONITOR. CALL LIGHT IN REACH.
--- NOTE | 2020-06-01 07:00 | NUR ---
ARRIVED ON SHIFT, REPORT RECEIVED FROM OFFGOING NURSE, ASSUMED CARE OF LOREN.
--- NOTE | 2020-06-01 07:35 | NUR ---
Shift chart check completed.
--- NOTE | 2020-06-01 11:43 | NUR ---
PT CAN RETURN TO [facility] WHEN MEDICALLY STABLE. COVID IS PENDING
--- NOTE | 2020-06-01 14:45 | NUR ---
Patient is discharged to return to [facility] via [place] at 4PM. DC orders faxed, NH, nursing/race steward notified. Attempted to notify patients son but was unable to contact, left voicemail.
--- NOTE | 2020-06-01 16:08 | NUR ---
CALL PLACED TO THE [facility] TO GIVE NURSE TO NURSE REPORT, NURSE UNAVAILABLE, LEFT NUMBER FOR CALL BACK. [facility] HERE, IV REMOVED Discharge instructions reviewed with patient/family. Patient receptive and verbalizes understanding. Follow-up care arranged. Written instructions given to HOME CHILD CARE PROVIDER. ELIUD ANNE
--- NOTE | 2020-06-01 16:15 | NUR ---
RECEIVED CALL BACK FROM HUMBLE CARO AT THE [facility], NURSE TO NURSE REPORT GIVEN.
== END 2020-06-01 16:15 | disposition other institution (70) ==
LOC: ED 09:31 → EDHOLD 12:47 → 5E 13:16
PROVIDERS: ADMIT Student in an Organized Health Care Education/Training Program; ATTEND Student in an Organized Health Care Education/Training Program
DX: I16.1 Hypertensive emergency (principal); E87.6 Hypokalemia; D75.89 Other specified diseases of blood and blood-forming organs; I01.1 Acute rheumatic endocarditis; M19.90 Unspecified osteoarthritis, unspecified site; M31.6 Other giant cell arteritis; E03.9 Hypothyroidism, unspecified; E11.9 Type 2 diabetes mellitus without complications; H91.10 Presbycusis, unspecified ear; I10 Essential (primary) hypertension; K21.9 Gastro-esophageal reflux disease without esophagitis; E55.9 Vitamin D deficiency, unspecified; I49.1 Atrial premature depolarization; J44.9 Chronic obstructive pulmonary disease, unspecified; G93.41 Metabolic encephalopathy; E44.0 Moderate protein-calorie malnutrition; E87.2 Acidosis

== ENCOUNTER 2020-07-01 05:44 | Emergency (ER) | payer MEDICARE ==
[~2020-07-01] VITALS: Ht 157.4 cm; Wt 47.2 kg
[~2020-07-01 05:44] MED LIST changes: +24 HOUR ALLERG9.9 ML INH; +CALTRATE 600 P1 EACH PO; +DIPHENHYDRAMINE25 M2 PO; +HUMALOG100 UNIT/2 SC; +IMURAN50 MG PO; +LISINOPRIL20 MG PO; +METOPROLOL TART50 M1 PO; +NORVASC5 MG PO; +ONDANSETRON4 MG SL; +POTASSIUM CHLO10 ME5 PO; +PREDNISONE5 MG PO; +PROBIOTIC250 MG PO; +VENTOLIN 02.5 MG/3 M INH; +VITAMIN A T; +ZOCOR40 MG PO; +[UNRECOGNIZED DRUG - OTHER] T
[2020-07-01 06:33] LABS: BASO # 0.1 10*3/uL (0.0-0.1); BASO % 0.6 % (0.0-1.0); EOS # 0.2 10*3/uL (0.0-0.4); HEMATOCRIT 38.7 % (37.0-47.0); LYMPH # 2.6 10*3/uL (1.3-4.4); LYMPH % 29.9 % (27.0-41.0); MEAN CELL VOLUME 104.6 fl (81.0-99.0); MEAN CORPUSCULAR HGB CONC 31.5 g/dl (33.0-37.0); MONO # 0.9 10*3/uL (0.1-1.0); MONO % 10.2 % (3.0-9.0); NEUT % 56.6 % (47.0-73.0); PLATELET COUNT AUTOMATED 346 10*3/uL (130-400); RED CELL DISTRI WIDTH 12.8 % (0-14.5); WHITE BLOOD COUNT 8.8 10*3/uL (4.8-10.8)
[2020-07-01 06:52] LABS: ALBUMIN 2.9 gm/dl (3.1-4.5); BUN 21 mg/dl (7-24); CHLORIDE 111 mmol/L (98-107); CREATININE 0.58 mg/dL (0.55-1.02); SGOT/AST 18 IU/L (3-35); SGPT/ALT 21 U/L (12-78); SODIUM 144 mmol/L (136-145)
[2020-07-01 06:55] LABS: ALKALINE PHOSPHATASE 83 U/L (45-117); TROPONIN I < 0.015 ng/ml (<0.045)
[2020-07-01 07:03] LABS: BILIRUBIN Negative (Negative); BLOOD Negative (Negative); CLARITY Clear (Clear); COLOR Yellow (Yellow); GLUCOSE Negative (Negative); KETONE Negative (Negative); LEUKO ESTERASE Trace (Negative); NITRITE Negative (Negative); UROBILINOGEN 0.2 E.U./dl (0.0-1.0)
[2020-07-01 07:23] LABS: RBC 0-2 rbc/hpf (0-2)
[2020-07-01] MEDS ORDERED: APRESOLINE25 MG PO (13:30)
== END 2020-07-01 13:47 | disposition other institution (70) ==
LOC: ED 05:44
PROVIDERS: Emergency Medicine
DX: I10 Essential (primary) hypertension (principal); J44.9 Chronic obstructive pulmonary disease, unspecified; E11.9 Type 2 diabetes mellitus without complications; K21.9 Gastro-esophageal reflux disease without esophagitis; Z88.0 Allergy status to penicillin; Z88.8 Allergy status to other drugs, medicaments and biological substances; Z79.899 Other long term (current) drug therapy; Z79.4 Long term (current) use of insulin

== ENCOUNTER 2020-07-09 08:49 | Emergency (ER) | payer MEDICARE ==
[~2020-07-09 08:49] MED LIST changes: +APRESOLINE25 MG PO
[2020-07-09 09:19] LABS: BASO # 0.1 10*3/uL (0.0-0.1); BASO % 0.6 % (0.0-1.0); EOS # 0.1 10*3/uL (0.0-0.4); EOS % 1.4 % (1.0-4.0); HEMATOCRIT 41.7 % (37.0-47.0); LYMPH # 2.7 10*3/uL (1.3-4.4); LYMPH % 26.4 % (27.0-41.0); MEAN CELL VOLUME 103.7 fl (81.0-99.0); MEAN CORPUSCULAR HGB 33.1 pg (27.0-31.0); MEAN CORPUSCULAR HGB CONC 31.9 g/dl (33.0-37.0); MEAN PLATELET VOLUME 8.9 fl (9.6-12.3); MONO # 0.8 10*3/uL (0.1-1.0); MONO % 8.1 % (3.0-9.0); NEUT # 6.4 10*3/uL (2.3-7.9); PLATELET COUNT AUTOMATED 384 10*3/uL (130-400); RED BLOOD COUNT 4.02 10*6/uL (4.10-5.10); RED CELL DISTRI WIDTH 12.6 % (0-14.5); WHITE BLOOD COUNT 10.1 10*3/uL (4.8-10.8)
[2020-07-09 09:30] LABS: ACT PARTIAL THROMBO TIME 24.2 SECONDS (20.0-32.1); INTERNATIONAL NORM RATIO 0.9 (2.0-3.5)
[2020-07-09 09:36] LABS: ALBUMIN 3.2 gm/dl (3.1-4.5); ALKALINE PHOSPHATASE 85 U/L (45-117); BUN 22 mg/dl (7-24); CHLORIDE 108 mmol/L (98-107); POTASSIUM 3.6 mmol/L (3.5-5.1); SGOT/AST 13 IU/L (3-35); SGPT/ALT 18 U/L (12-78); SODIUM 142 mmol/L (136-145); TOTAL PROTEIN 6.2 gm/dL (6.4-8.2)
[2020-07-09 09:40] LABS: ETHYL ALCOHOL < 3.0 mg/dl (<3); TROPONIN I < 0.015 ng/ml (<0.045)
[2020-07-09 10:53] LABS: BILIRUBIN Negative (Negative); BLOOD Negative (Negative); CLARITY Clear (Clear); COLOR Yellow (Yellow); GLUCOSE Negative (Negative); KETONE Negative (Negative); LEUKO ESTERASE Negative (Negative); NITRITE Negative (Negative); UROBILINOGEN 0.2 E.U./dl (0.0-1.0)
[2020-07-09 10:59] LABS: URINE AMPHETAMINES < 1000 (1000ng/ml); URINE BARBITURATES < 200 (200ng/ml); URINE BENZODIAZEPINES < 200 (200ng/ml); URINE CANNABINOIDS (THC) < 50 (50ng/ml); URINE COCAINE < 300 (300ng/ml); URINE METHADONE < 300 (300ng/ml); URINE OPIATES < 300 (300ng/ml)
[2020-07-09 11:02] LABS: URINE PHENCYCLIDINE < 25 (25ng/ml)
[2020-07-09 11:09] LABS: BACTERIA TRACE; CALCIUM OXALATE CRYSTALS 1+; MUCOUS TRACE
== END 2020-07-09 13:15 | disposition home or self-care (01) ==
LOC: ED 08:49
PROVIDERS: Emergency Medicine
DX: F43.21 Adjustment disorder with depressed mood (principal); J44.9 Chronic obstructive pulmonary disease, unspecified; E11.9 Type 2 diabetes mellitus without complications; E03.9 Hypothyroidism, unspecified; Z88.0 Allergy status to penicillin; Z88.8 Allergy status to other drugs, medicaments and biological substances; Z88.5 Allergy status to narcotic agent; Z91.041 Radiographic dye allergy status; Z79.899 Other long term (current) drug therapy; Z79.4 Long term (current) use of insulin

== ENCOUNTER 2020-07-12 14:32 | Emergency (ER) | payer MEDICARE ==
[~2020-07-12] VITALS: Wt 45.4 kg
[2020-07-12 15:17] LABS: BASO % 0.4 % (0.0-1.0); EOS % 0.4 % (1.0-4.0); HEMATOCRIT 40.7 % (37.0-47.0); LYMPH # 1.2 10*3/uL (1.3-4.4); LYMPH % 10.2 % (27.0-41.0); MEAN CELL VOLUME 103.8 fl (81.0-99.0); MEAN CORPUSCULAR HGB 33.2 pg (27.0-31.0); MEAN CORPUSCULAR HGB CONC 31.9 g/dl (33.0-37.0); MEAN PLATELET VOLUME 8.9 fl (9.6-12.3); MONO # 0.7 10*3/uL (0.1-1.0); NEUT # 9.3 10*3/uL (2.3-7.9); NEUT % 82.5 % (47.0-73.0); PLATELET COUNT AUTOMATED 402 10*3/uL (130-400); RED BLOOD COUNT 3.92 10*6/uL (4.10-5.10); RED CELL DISTRI WIDTH 12.7 % (0-14.5); WHITE BLOOD COUNT 11.3 10*3/uL (4.8-10.8)
[2020-07-12 15:27] LABS: ACT PARTIAL THROMBO TIME 24.1 SECONDS (20.0-32.1); INTERNATIONAL NORM RATIO 0.9 (2.0-3.5)
[2020-07-12 15:34] LABS: ALBUMIN 3.4 gm/dl (3.1-4.5); ALKALINE PHOSPHATASE 88 U/L (45-117); BUN 23 mg/dl (7-24); CHLORIDE 110 mmol/L (98-107); CREATININE 0.66 mg/dL (0.55-1.02); LIPASE 258 U/L (73-393); POTASSIUM 4.4 mmol/L (3.5-5.1); SGOT/AST 16 IU/L (3-35); SGPT/ALT 18 U/L (12-78); SODIUM 140 mmol/L (136-145); TOTAL PROTEIN 6.5 gm/dL (6.4-8.2)
[2020-07-12 15:35] LABS: TROPONIN I < 0.015 ng/ml (<0.045)
[2020-07-12 15:35] LABS: BILIRUBIN Negative (Negative); BLOOD Negative (Negative); CLARITY Clear (Clear); COLOR Yellow (Yellow); GLUCOSE Negative (Negative); KETONE Negative (Negative); LEUKO ESTERASE Negative (Negative); NITRITE Negative (Negative); UROBILINOGEN 0.2 E.U./dl (0.0-1.0)
[2020-07-12 15:49] LABS: WBC 0-2 wbc/hpf (0-5)
== END 2020-07-12 23:25 | disposition other institution (70) ==
LOC: ED 14:32
PROVIDERS: Emergency Medicine
DX: R07.9 Chest pain, unspecified (principal); M54.9 Dorsalgia, unspecified; R51.9 Headache, unspecified; R11.0 Nausea; Z88.0 Allergy status to penicillin; Z88.1 Allergy status to other antibiotic agents; Z91.018 Allergy to other foods; Z91.010 Allergy to peanuts; Z91.012 Allergy to eggs; Z79.899 Other long term (current) drug therapy

== ENCOUNTER 2021-07-04 14:12 | Emergency (ER) | payer MEDICARE ==
[~2021-07-04 14:12] MED LIST changes: +CEFUROXIME AXE250 MG PO; +CHOLECALCIFEROL1 GM PO; +LACTOBACILLUS1 EACH PO; +LISINOPRIL40 MG PO
[2021-07-04 15:09] LABS: BASO % 0.6 % (0.0-1.0); EOS # 0.1 10*3/uL (0.0-0.4); EOS % 1.7 % (1.0-4.0); HEMATOCRIT 43.5 % (37.0-47.0); LYMPH # 1.7 10*3/uL (1.3-4.4); MEAN CELL VOLUME 107.7 fl (81.0-99.0); MEAN CORPUSCULAR HGB 34.4 pg (27.0-31.0); MEAN PLATELET VOLUME 8.9 fl (9.6-12.3); MONO # 0.7 10*3/uL (0.1-1.0); NEUT # 4.6 10*3/uL (2.3-7.9); NEUT % 63.3 % (47.0-73.0); PLATELET COUNT AUTOMATED 337 10*3/uL (130-400); RED BLOOD COUNT 4.04 10*6/uL (4.10-5.10); RED CELL DISTRI WIDTH 13.2 % (0-14.5); WHITE BLOOD COUNT 7.2 10*3/uL (4.8-10.8)
[2021-07-04 15:23] LABS: ALBUMIN 3.3 gm/dl (3.1-4.5); ALKALINE PHOSPHATASE 91 U/L (45-117); BUN 19 mg/dl (7-24); CHLORIDE 108 mmol/L (98-107); CREATININE 0.64 mg/dL (0.55-1.02); POTASSIUM 3.7 mmol/L (3.5-5.1); SGOT/AST 27 IU/L (3-35); SGPT/ALT 29 U/L (12-78); SODIUM 140 mmol/L (136-145); TOTAL PROTEIN 6.7 gm/dL (6.4-8.2)
== END 2021-07-04 16:06 | disposition home or self-care (01) ==
LOC: ED 14:12
PROVIDERS: Student in an Organized Health Care Education/Training Program
DX: I16.0 Hypertensive urgency (principal); Z88.0 Allergy status to penicillin; Z88.1 Allergy status to other antibiotic agents; Z91.018 Allergy to other foods; Z91.012 Allergy to eggs; Z79.899 Other long term (current) drug therapy

== ENCOUNTER 2021-12-31 14:21 | Inpatient (IN) | payer MEDICARE ==
[~2021-12-31] VITALS: Ht 149.8 cm; Wt 48.1 kg
[2021-12-31 14:42] VITALS: BP 211/107
[2021-12-31 15:34] LABS: HEMATOCRIT 43.6 % (37.0-47.0); MEAN CELL VOLUME 112.1 fl (81.0-99.0); MEAN PLATELET VOLUME 8.6 fl (9.6-12.3); PLATELET COUNT AUTOMATED 396 10*3/uL (130-400); RED BLOOD COUNT 3.89 10*6/uL (4.10-5.10); RED CELL DISTRI WIDTH 12.1 % (0-14.5); WHITE BLOOD COUNT 8.9 10*3/uL (4.8-10.8)
[2021-12-31 15:37] LABS: MANUAL DIFF REFLEX YES
[2021-12-31 15:54] LABS: ALKALINE PHOSPHATASE 88 U/L (45-117); BUN 20 mg/dl (7-24); CHLORIDE 110 mmol/L (98-107); CREATININE 0.56 mg/dL (0.55-1.02); POTASSIUM 3.8 mmol/L (3.5-5.1); SGOT/AST 18 IU/L (3-35); SGPT/ALT 27 U/L (12-78); SODIUM 140 mmol/L (136-145); TOTAL PROTEIN 6.4 gm/dL (6.4-8.2)
[2021-12-31 15:58] VITALS: BP 203/76
[2021-12-31 15:58] LABS: TOTAL CELLS COUNTED 100 #CELLS
[2021-12-31 15:59] LABS: PLATELET SUFFICIENCY NORMAL (NORMAL)
[2021-12-31 16:59] VITALS: BP 182/79
[2021-12-31 18:55] VITALS: BP 168/76
[2021-12-31 20:00] VITALS: BP 131/82; BP 222/96
[2021-12-31] MEDS ORDERED: MEDROL4 M1 PO (20:51)
[2021-12-31] MEDS ORDERED: LOPRESSOR25 MG PO (20:53)
[2021-12-31] MEDS ORDERED: TOPAMAX25 M3 PO (20:55)
[2021-12-31] MEDS ORDERED: VITAMIN D3125 MC1 PO (20:58)
[2021-12-31] MEDS ORDERED: VITAMIN D325 MCG PO (21:05)
[2021-12-31] MEDS ORDERED: PRESERVISION A1 EAC3 PO (21:06)
[2022-01-01] VITALS (7 sets, daily range): BP systolic 150–217; BP diastolic 57–124
[2022-01-01 06:10] LABS: ALKALINE PHOSPHATASE 81 U/L (45-117); BUN 14 mg/dl (7-24); CHLORIDE 106 mmol/L (98-107); CHOLESTEROL 133 mg/dL (<200); CREATININE 0.48 mg/dL (0.55-1.02); FREE T4 1.32 ng/dl (0.76-1.46); LDL CHOLESTEROL 70 mg/dL (9-159); POTASSIUM 3.2 mmol/L (3.5-5.1); SGOT/AST 15 IU/L (3-35); SGPT/ALT 24 U/L (12-78); SODIUM 139 mmol/L (136-145); TOTAL PROTEIN 6.3 gm/dL (6.4-8.2); TRIGLYCERIDES 96 mg/dl (<150)
[2022-01-01 06:22] LABS: HEMATOCRIT 42.6 % (37.0-47.0); MEAN CELL VOLUME 109.8 fl (81.0-99.0); MEAN CORPUSCULAR HGB 37.4 pg (27.0-31.0); MEAN PLATELET VOLUME 9.1 fl (9.6-12.3); PLATELET COUNT AUTOMATED 424 10*3/uL (130-400); RED BLOOD COUNT 3.88 10*6/uL (4.10-5.10); RED CELL DISTRI WIDTH 12.3 % (0-14.5)
[2022-01-01 06:23] LABS: MANUAL DIFF REFLEX YES
[2022-01-01 06:55] LABS: PLATELET SUFFICIENCY HIGH (NORMAL); POLYCHROMASIA SLIGHT; TOTAL CELLS COUNTED 100 #CELLS
[2022-01-01] MEDS ORDERED: Meclizine25 MG PO ×2 (07:07→19:12)
[2022-01-01] MEDS ORDERED: KLONOPIN0.5 MG PO ×2 (07:08→19:12)
[2022-01-01] MEDS ORDERED: LEXAPRO20 MG PO (07:09)
[2022-01-01] MEDS ORDERED: NEURONTIN100 MG PO (07:10)
[2022-01-01] MEDS ORDERED: HYDROCHLOROTH12.5 M2 PO (07:10)
[2022-01-01] MEDS ORDERED: 8 HOUR PAIN RE650 M1 PO (07:11)
[2022-01-01 11:12] LABS: BILIRUBIN Negative (Negative); BLOOD Trace-Lysed (Negative); CLARITY Turbid (Clear); COLOR Yellow (Yellow); GLUCOSE Negative (Negative); KETONE 2+ (Negative); LEUKO ESTERASE 3+ (Negative); NITRITE Positive (Negative); SPECIFIC GRAVITY 1.015 (1.001-1.030)
[2022-01-01 11:21] LABS: WBC TNTC wbc/hpf (0-5)
[2022-01-01 13:54] LABS: VITAMIN D, 25-HYDROXY 52.4 ng/mL (30-100)
[2022-01-01] MEDS ORDERED: AZATHIOPRINE50 MG PO (18:23)
[2022-01-01] MEDS ORDERED: POTASSIUM CHLO10 MEQ PO (18:25)
[2022-01-01] MEDS ORDERED: SEROQUEL50 MG PO (18:27)
[2022-01-01] MEDS ORDERED: ALENDRONATE SOD70 M1 PO (18:29)
[2022-01-01] MEDS ORDERED: PRESERVISION A1 EAC3 PO (19:07)
[2022-01-01] MEDS ORDERED: D3-200050 MCG PO (19:10)
[2022-01-01] MEDS ORDERED: STOOL SOFTENER100 MG PO (19:11)
[2022-01-01] MEDS ORDERED: PANTOPRAZOLE SO40 MG PO (19:12)
[2022-01-01] MEDS ORDERED: CALCIUM + VITA1 EAC2 PO (19:13)
[2022-01-01] MEDS ORDERED: HYDRALAZINE10 MG PO (19:13)
[2022-01-02] VITALS: BP 148/66
[2022-01-02 05:36] LABS: CHLORIDE 107 mmol/L (98-107); CREATININE 0.74 mg/dL (0.55-1.02); SODIUM 138 mmol/L (136-145)
[2022-01-02 05:37] LABS: BUN 28 mg/dl (7-24); POTASSIUM 4.3 mmol/L (3.5-5.1)
[2022-01-02 06:30] LABS: MEAN CELL VOLUME 110.3 fl (81.0-99.0); MEAN CORPUSCULAR HGB CONC 32.7 g/dl (33.0-37.0); MEAN PLATELET VOLUME 9.1 fl (9.6-12.3); PLATELET COUNT AUTOMATED 476 10*3/uL (130-400); RED BLOOD COUNT 4.08 10*6/uL (4.10-5.10); RED CELL DISTRI WIDTH 12.3 % (0-14.5); WHITE BLOOD COUNT 9.7 10*3/uL (4.8-10.8)
[2022-01-02 06:48] LABS: MANUAL DIFF REFLEX YES
[2022-01-02 07:31] LABS: ATYPICAL LYMPHS 1 % (0-0); PLATELET SUFFICIENCY HIGH (NORMAL); POLYCHROMASIA SLIGHT; TOTAL CELLS COUNTED 100 #CELLS
[2022-01-02 08:00] VITALS: BP 154/64
[2022-01-02 12:00] VITALS: BP 181/66
[2022-01-02 16:00] VITALS: BP 186/74
[2022-01-02 17:57] VITALS: BP 116/48
[2022-01-02 20:00] VITALS: BP 164/69
[2022-01-03] VITALS: BP 120/53
[2022-01-03 04:46] LABS: HEMATOCRIT 42.4 % (37.0-47.0); MEAN CORPUSCULAR HGB 37.4 pg (27.0-31.0); MEAN CORPUSCULAR HGB CONC 33.7 g/dl (33.0-37.0); MEAN PLATELET VOLUME 8.8 fl (9.6-12.3); PLATELET COUNT AUTOMATED 407 10*3/uL (130-400); RED BLOOD COUNT 3.82 10*6/uL (4.10-5.10); RED CELL DISTRI WIDTH 12.3 % (0-14.5); WHITE BLOOD COUNT 8.9 10*3/uL (4.8-10.8)
[2022-01-03 04:48] LABS: MANUAL DIFF REFLEX YES
[2022-01-03 05:11] LABS: ATYPICAL LYMPHS 3 % (0-0); BASOPHILS 1 % (0-1); PLATELET SUFFICIENCY HIGH (NORMAL); TOTAL CELLS COUNTED 100 #CELLS
[2022-01-03 05:12] LABS: BUN 35 mg/dl (7-24); BURR CELLS FEW; CHLORIDE 108 mmol/L (98-107); CREATININE 0.74 mg/dL (0.55-1.02); POTASSIUM 4.2 mmol/L (3.5-5.1); SODIUM 138 mmol/L (136-145)
[2022-01-03 08:00] VITALS: BP 139/62
[2022-01-03 12:00] VITALS: BP 145/62
[2022-01-03 16:00] VITALS: BP 117/93
[2022-01-03 20:00] VITALS: BP 115/49
[2022-01-04] VITALS: BP 136/80
[2022-01-04 04:27] LABS: HEMATOCRIT 40.2 % (37.0-47.0); MEAN CELL VOLUME 111.7 fl (81.0-99.0); MEAN CORPUSCULAR HGB 37.5 pg (27.0-31.0); MEAN CORPUSCULAR HGB CONC 33.6 g/dl (33.0-37.0); MEAN PLATELET VOLUME 8.7 fl (9.6-12.3); PLATELET COUNT AUTOMATED 373 10*3/uL (130-400); RED CELL DISTRI WIDTH 11.9 % (0-14.5); WHITE BLOOD COUNT 8.4 10*3/uL (4.8-10.8)
[2022-01-04 04:28] LABS: MANUAL DIFF REFLEX YES
[2022-01-04 04:40] LABS: BUN 40 mg/dl (7-24); CHLORIDE 107 mmol/L (98-107); CREATININE 0.77 mg/dL (0.55-1.02); POTASSIUM 3.8 mmol/L (3.5-5.1); SODIUM 139 mmol/L (136-145)
[2022-01-04 04:49] LABS: ATYPICAL LYMPHS 4 % (0-0); BASOPHILS 1 % (0-1); TOTAL CELLS COUNTED 100 #CELLS
[2022-01-04 04:50] LABS: PLATELET SUFFICIENCY NORMAL (NORMAL)
[2022-01-04 08:00] VITALS: BP 120/76
[2022-01-04 12:00] VITALS: BP 110/62
[2022-01-04] MEDS ORDERED: OMNICEF300 MG PO (14:29)
[2022-01-04] MEDS ORDERED: RIVASTIGMINE TAR3 M1 PO (14:29)
[2022-01-04] MEDS ORDERED: QUETIAPINE FUMA50 M1 PO (15:36)
[2022-01-04 16:00] VITALS: BP 94/80
[2022-01-04 20:00] VITALS: BP 117/61
[2022-01-05] VITALS: BP 129/77
[2022-01-05 08:00] VITALS: BP 137/56
[2022-01-05] MEDS ORDERED: NEURONTIN100 MG PO (11:04)
[2022-01-05] MEDS ORDERED: KLONOPIN0.5 MG PO (11:04)
== END 2022-01-05 13:14 | DRG 690 ==
LOC: ED 14:21 → EDHOLD 17:40 → 4E 17:40
PROVIDERS: Emergency Medicine; Internal Medicine; ADMIT Internal Medicine; ATTEND Internal Medicine
DX: N39.0 Urinary tract infection, site not specified (principal); E44.0 Moderate protein-calorie malnutrition; I01.1 Acute rheumatic endocarditis; R54 Age-related physical debility; Z51.5 Encounter for palliative care; I87.2 Venous insufficiency (chronic) (peripheral); Z66 Do not resuscitate; Z20.822 Contact with and (suspected) exposure to COVID-19; R29.6 Repeated falls; E87.8 Other disorders of electrolyte and fluid balance, not elsewhere classified; D75.89 Other specified diseases of blood and blood-forming organs; Z68.21 Body mass index [BMI] 21.0-21.9, adult; M19.90 Unspecified osteoarthritis, unspecified site; E11.65 Type 2 diabetes mellitus with hyperglycemia; E03.9 Hypothyroidism, unspecified; B96.20 Unspecified Escherichia coli [E. coli] as the cause of diseases classified elsewhere; I10 Essential (primary) hypertension; K21.9 Gastro-esophageal reflux disease without esophagitis; G30.9 Alzheimer's disease, unspecified; F02.80 Dementia in other diseases classified elsewhere, unspecified severity, without behavioral disturbance, psychotic disturbance, mood disturbance, and anxiety; J44.9 Chronic obstructive pulmonary disease, unspecified; E55.9 Vitamin D deficiency, unspecified; E78.2 Mixed hyperlipidemia; R31.9 Hematuria, unspecified; Z90.710 Acquired absence of both cervix and uterus; Z98.891 History of uterine scar from previous surgery; Z88.0 Allergy status to penicillin; Z91.041 Radiographic dye allergy status; Z91.012 Allergy to eggs; Z88.5 Allergy status to narcotic agent; Z91.010 Allergy to peanuts; Z88.8 Allergy status to other drugs, medicaments and biological substances; Z79.1 Long term (current) use of non-steroidal anti-inflammatories (NSAID); Z79.4 Long term (current) use of insulin; Z79.899 Other long term (current) drug therapy